=== PATIENT | female | born 1970 | race Hispanic/Latino ===

== ENCOUNTER 2018-08-05 18:37 | Emergency (ER) | payer BC, MEDICARE | END 2018-08-05 19:25 | disposition home or self-care (01) | LOC: NAV ERS 18:37 | DX: M54.5 Low back pain (principal); R22.0 Localized swelling, mass and lump, head; I10 Essential (primary) hypertension; F41.9 Anxiety disorder, unspecified; Z79.899 Other long term (current) drug therapy | CPT/HCPCS: 99283 ==

== ENCOUNTER 2019-03-02 16:08 | Outpatient (CLI) | payer MEDICARE ==
--- NOTE | 2019-03-02 17:00 | RAD ---
Lumbar spine 5 views: 03/02/2019 COMPARISON: None HISTORY: Back pain, radiculopathy FINDINGS: Lumbar pedicles appear intact on the frontal imaging. On the neutral lateral imaging there is anterolisthesis measuring 4-5 mm at L3-4 and L4-5. On the flexion imaging the anterolisthesis measures 5-6 mm at L3-4 and L4-5. On the extension imaging the anterolisthesis at L3-4 measures 2 mm and at L4-5 measures 3 mm. No acute osseous abnormality. There is mild disc space narrowing and anterior osteophyte formation at L3-4. There is bilateral facet hypertrophy at L3-4 and L4-5. Impression: Anterolisthesis at L3-4 and L4-5, most prominent upon flexion.
--- NOTE | 2019-03-02 17:03 | CT ---
CT lumbar spine noncontrast HISTORY: Low back pain. FINDINGS: Vertebral body heights are maintained. No acute fracture or dislocation. Calcification within the arterial structures evident. T12-L1, L1-2, L2-3: Mild osteophytosis. Central canal and neural foramina are patent. L3-4: Disc space narrowing. Minimal degenerative spondylolisthesis. Posterior disc bulge and circumfe rential degenerative changes. Osteophytosis of the facets with gas. Mild stenosis of the central canal. Moderate stenosis of each neural foramen. L4-5: Minimal degenerative spondylolisthesis. Thecal sac is patent. Degenerative changes and minimal disc bulge. Mild bilateral foraminal stenoses. L5-S1: Minimal disc bulge. Osteophytosis of the facets. Thecal sac and neural foramina remain patent. IMPRESSION: Mild degenerative changes of the lower lumbar spine, with central canal and foraminal tala noses as detailed above. Atherosclerosis.
== END 2019-03-02 16:09 | disposition home or self-care (01) ==
LOC: NAV CT 16:08
PROVIDERS: ATTEND Neurological Surgery
DX: M47.26 Other spondylosis with radiculopathy, lumbar region (principal); M48.061 Spinal stenosis, lumbar region without neurogenic claudication; I70.90 Unspecified atherosclerosis; M43.16 Spondylolisthesis, lumbar region
CPT/HCPCS: 72120; 72131

== ENCOUNTER 2020-05-07 19:47 | Emergency (ER) | payer MEDICARE | END 2020-05-07 21:01 | disposition home or self-care (01) | LOC: NAV ERS 19:47 | DX: M25.512 Pain in left shoulder (principal); I10 Essential (primary) hypertension; Z79.899 Other long term (current) drug therapy; W22.8XXA Striking against or struck by other objects, initial encounter ==

== ENCOUNTER 2021-10-06 12:28 | Emergency (ER) | payer OTHER ==
[~2021-10-06 12:28] MED LIST: Iopamidol 370 76% 100 ML VIAL ONE
[2021-10-06 12:53] LABS: Bilirubin Negative (Negative); Blood, Urine Negative (Negative); Clarity Clear (Clear); Glucose, Urine (Dipstick) Negative (Negative); Ketone, Urine Negative (Negative); Leukocyte Negative (Negative); Nitrite Negative (Negative); Protein, Urine (Dipstick) Negative (Neg-Trace); Urobilinogen 0.2 mg/dL (Less than 2)
[2021-10-06 13:21] LABS: #Basophils 0.1 thou/uL (0.0-0.2); #Eosinphils 0.2 thou/uL (0.0-0.7); #Lymphocytes 3.8 thou/uL (1.20-3.40); #Monocytes 0.7 thou/uL (0.11-0.59); #Neutrophils 3.6 thou/uL (1.40-6.50); %Basophils 1.2 % (0.0-1.0); %Eosinophils 1.9 % (0.0-10.0); %Lymphocytes 45.3 % (21.0-51.0); %Monocytes 8.1 % (0.0-10.0); %Neutrophils 43.5 % (42.0-75.0); Mean Corpuscular HGB CONC 29.7 g/dL (32.0-36.0); Mean Corpuscular Hemoglobin 26.5 pg (27.0-31.0); Mean Corpuscular Volume 89.1 fL (78.0-98.0); Platelet Count 339 thou/uL (130-400); Red Blood Cell (RBC) Count 4.55 mill/uL (4.20-5.40); White Blood Cell (WBC) Count 8.3 thou/uL (4.8-10.8)
[2021-10-06 13:39] LABS: ALT (SGPT) 22 U/L (8-55); AST (SGOT) 21 U/L (5-34); Albumin 4.4 g/dL (3.5-5.0); Alkaline Phosphatase 71 U/L (40-110); Anion Gap 19 mmol/L (10-20); BUN (Urea Nitrogen) 17 mg/dL (9.8-20.1); Bilirubin, Total 0.2 mg/dL (0.2-1.2); Calc. Creatinine Clearance 0 mL/min (70-130); Calcium 9.8 mg/dL (7.8-10.44); Carbon Dioxide 27 mmol/L (22-29); Chloride 95 mmol/L (98-107); Estimated GFR 64; Globulin 3.3 g/dL (2.4-3.5); Glucose 98 mg/dL (70-105); Potassium 3.5 mmol/L (3.5-5.1); Protein, Total 7.7 g/dL (6.0-8.3); Sodium 137 mmol/L (136-145)
[2021-10-06] MEDS ORDERED: Ketorolac Tromethamine 30 MG/ML VIAL ONE (14:13)
== END 2021-10-06 14:22 | disposition home or self-care (01) ==
LOC: NAV ERS 12:28
DX: R10.31 Right lower quadrant pain (principal)
CPT/HCPCS: 74177; 80053; 81003; 85025; 96374; J1885; Q9967

== ENCOUNTER 2021-12-18 08:48 | Emergency (ER) | payer OTHER | END 2021-12-18 10:30 | disposition home or self-care (01) | LOC: NAV ERS 08:48 | DX: S00.03XA Contusion of scalp, initial encounter (principal); I10 Essential (primary) hypertension; W01.198A Fall on same level from slipping, tripping and stumbling with subsequent striking against other object, initial encounter | CPT/HCPCS: 70450 ==

== ENCOUNTER 2022-01-03 17:07 | Emergency (ER) | payer OTHER | END 2022-01-03 17:36 | disposition home or self-care (01) | LOC: NAV ERS 17:07 | DX: I10 Essential (primary) hypertension (principal) | CPT/HCPCS: 99281 ==

== ENCOUNTER 2024-09-18 21:12 | Emergency (ER) | payer OTHER ==
[2024-09-18 22:06] LABS: #Basophils 0.1 thou/uL (0.0-0.2); #Eosinophils 0.0 thou/uL (0.0-0.7); #Lymphocytes 2.4 thou/uL (1.20-3.40); #Monocytes 0.6 thou/uL (0.11-0.59); #Neutrophils 7.3 thou/uL (1.40-6.50); %Basophils 1.0 % (0.0-1.0); %Eosinophils 0.0 % (0.0-10.0); %Lymphocytes 22.9 % (21.0-51.0); %Monocytes 6.2 % (0.0-10.0); %Neutrophils 69.9 % (42.0-75.0); Hematocrit 39.7 % (36.0-47.0); Hemoglobin 13.3 g/dL (12.0-16.0); Mean Corpuscular Hemoglobin 30.1 pg (27.0-31.0); Mean Corpuscular Volume 89.8 fl (78.0-98.0); Platelet Count 417 10x3/uL (130-400); Red Blood Cell (RBC) Count 4.42 mill/uL (4.20-5.40); White Blood Cell (WBC) Count 10.4 10x3/uL (4.8-10.8)
[2024-09-18 22:09] LABS: Glucose, Urine (Dipstick) Negative (Negative); Leukocyte Negative (Negative); Protein, Urine (Dipstick) Negative (Neg-Trace); Specific Gravity, Urine Less/Equal 1.005 (1.005-1.030)
[2024-09-18 22:14] LABS: Bacteria/HPF Rare-Few HPF (None Seen); CAUTI Indications for Culture Pelvic or flank pain; RBC/HPF 0-3 HPF (0-3); Urine Culture Reflex No No; WBC/HPF 0-3 HPF (0-3)
[2024-09-18 22:17] LABS: Cocaine Metabolite Screen Negative (Negative); THC/Cannabinoid Screen Negative (Negative); Tricyclic Screen Negative (Negative)
[2024-09-18 22:20] LABS: ALT (SGPT) 15 U/L (Less than 34); AST (SGOT) 30 U/L (11-34); Albumin 4.4 g/dL (3.1-4.5); Alkaline Phosphatase 61 U/L (40-110); Anion Gap 15 mmol/L (10-20); BUN (Urea Nitrogen) 13 mg/dL (9.8-20.1); Bilirubin, Total 0.1 mg/dL (0.3-1.2); Calc. Creatinine Clearance 0 mL/min (70-130); Calcium 9.5 mg/dL (7.8-10.44); Carbon Dioxide 22 mmol/L (22-29); Chloride 107 mmol/L (98-107); Globulin 3.2 g/dL (2.4-3.5); Glucose 75 mg/dL (70-105); Potassium 3.5 mmol/L (3.5-5.1); Sodium 140 mmol/L (136-145)
[2024-09-18 22:21] LABS: Acetaminophen 18 mcg/mL (Less than 10); Salicylate Less than 8.0 mg/dL (Less than 8.0)
[2024-09-19 02:18] LABS: Troponin I Less than 0.010 ng/mL (< 0.028)
== END 2024-09-19 04:19 | disposition home or self-care (01) ==
LOC: NAV ERS 21:12
DX: F41.9 Anxiety disorder, unspecified (principal); R10.31 Right lower quadrant pain; E86.0 Dehydration; I10 Essential (primary) hypertension; Z87.891 Personal history of nicotine dependence; Z79.899 Other long term (current) drug therapy
CPT/HCPCS: 36415; 71045; 74177; 80053; 80306; 80307; 81001; 84484; 85025; 85379; 93005; 96361; 96374; 96376; J2060; J7030